=== PATIENT | female | born 1970 | race Caucasian/White ===

== ENCOUNTER 2023-03-18 12:14 | Outpatient (CLI) | payer BC | END 2023-03-18 12:15 | disposition home or self-care (01) | LOC: DTY/OP 12:14 | PROVIDERS: ATTEND Surgery | DX: E66.01 Morbid (severe) obesity due to excess calories (principal) | CPT/HCPCS: 97802 ==

== ENCOUNTER 2023-03-24 07:24 | Inpatient (IN) | payer BC ==
[2023-03-20 15:20] VITALS: BMI 32.6
[2023-03-24] MEDS ORDERED: Scopolamine 1 mg/72 hour Patch ONE (08:30)
[2023-03-24] MEDS ORDERED: cefOXitin 2 GM VIAL ONE ×3 (08:31→17:04)
[2023-03-24] MEDS ORDERED: Sodium Chloride 0.9% 100 ML ONE (08:31)
[2023-03-24] MEDS ORDERED: EPINEPHrine 1 MG/ML VIAL ONE (11:33)
[2023-03-24] MEDS ORDERED: Bupivacaine 0.25% HCL 30 ML VIAL ONE (11:33)
[2023-03-24] MEDS ORDERED: Glucagon 1 MG/ML KIT IM PRN (11:35)
[2023-03-24] MEDS ORDERED: SUGAMMADEX SODIUM 200 MG/2 ML VIAL ONE (11:35)
[2023-03-24] MEDS ORDERED: hydrALAZINE 20 MG/ML VIAL SLOW IVP PRN (11:35)
[2023-03-24] MEDS ORDERED: Dextrose 50% Abboject 50 ML SYRINGE SLOW IVP PRN (11:35)
[2023-03-24] MEDS ORDERED: Dextrose 5% in Water 1,000 ML IV PRN (11:35)
[2023-03-24] MEDS ORDERED: Ipratropium/Albuterol 3 ML NEB NEB PRN (11:35)
[2023-03-24] MEDS ORDERED: Promethazine HCl 25 MG/ML VIAL IM PRN ×2 (11:35→17:09)
[2023-03-24] MEDS ORDERED: fentaNYL PF 100 MCG/2 ML SYRINGE ONE ×2 (11:35→17:55)
[2023-03-24] MEDS ORDERED: diphenhydrAMINE 50 MG/ML VIAL IVP PRN (11:35)
[2023-03-24] MEDS ORDERED: MINERAL OIL/WHITE PETROLATUM 3.5 GM TUBE ONE (11:41)
[2023-03-24] MEDS ORDERED: Rocuronium Bromide 10 MG/ML (10ML VIAL) ONE (12:05)
[2023-03-24] MEDS ORDERED: PHENYLEPHRINE-NS 100 MCG/ML 10 ML SYRINGE ONE (12:05)
[2023-03-24] MEDS ORDERED: Vecuronium 10 MG VIAL ONE (12:05)
[2023-03-24] MEDS ORDERED: PROPOFOL 200 MG/20 ML VIAL ONE (12:05)
[2023-03-24] MEDS ORDERED: Ondansetron PF 4 MG/2 ML Vial ONE (12:05)
[2023-03-24] MEDS ORDERED: Labetalol HCl 100 MG/20 ML VIAL ONE (12:05)
[2023-03-24] MEDS ORDERED: Lidocaine 1% PF 5 ML VIAL ONE (12:05)
[2023-03-24] MEDS ORDERED: Dexamethasone 20 MG/5 ML VIAL ONE (12:05)
[2023-03-24] MEDS ORDERED: Esmolol 100 MG/10 ML VIAL ONE (12:05)
[2023-03-24] MEDS ORDERED: SUMAtriptan Succinate 50 MG TAB PO PRN (13:30)
[2023-03-24] MEDS ORDERED: Phenylephrine 40 MG/NS 250 ML 250 ML ONE (14:58)
[2023-03-24] MEDS ORDERED: Ondansetron HCl/PF 4 MG/2 ML Vial IVP PRN (17:09)
[2023-03-24] MEDS ORDERED: fentaNYL 50 mcg/mL 1 mL Vial ONE ×2 (18:20→19:02)
[2023-03-24] MEDS: Morphine 2 MG/ML VIAL SLOW IVP PRN (20:25)
[2023-03-24] MEDS: Pramipexole Di-HCl 0.125 MG TAB PO SCH (20:26)
[2023-03-24] MEDS: D5 1/2 NS w/20 mEq KCL 1,000 ML IV SCH ×2 (20:26→21:03)
[2023-03-24] MEDS: Amitriptyline HCl 25 MG TAB PO SCH (20:26)
[2023-03-24] MEDS: Ketorolac Tromethamine 30 MG/ML VIAL IVP SCH ×3 (21:02→23:55)
[2023-03-24] MEDS: levETIRAcetam 500 MG TAB PO SCH (21:28)
[2023-03-25] MEDS: Ondansetron PF 4 MG/2 ML Vial IVP PRN ×2 (02:46→17:23)
[2023-03-25] MEDS: Morphine 2 MG/ML VIAL SLOW IVP PRN ×2 (02:46→07:37)
[2023-03-25] MEDS: D5 1/2 NS w/20 mEq KCL 1,000 ML IV SCH ×3 (02:46→21:30)
[2023-03-25] MEDS: Levothyroxine Sodium 50 MCG TAB PO SCH (04:35)
[2023-03-25 05:01] LABS: #Monocytes 0.8 thou/uL (0.11-0.59); #Neutrophils 7.1 thou/uL (1.40-6.50); %Basophils 0.1 % (0.0-1.0); %Lymphocytes 15.4 % (21.0-51.0); %Monocytes 8.2 % (0.0-10.0); Hematocrit 38.6 % (36.0-47.0); Hemoglobin 12.1 g/dL (12.0-16.0); Mean Corpuscular HGB CONC 31.3 g/dL (32.0-36.0); Mean Corpuscular Hemoglobin 28.2 pg (27.0-31.0); Mean Platelet Volume 9.7 fL (7.4-10.4); Platelet Count 261 10x3/uL (130-400); RBC Distribution Width 13.7 % (11.5-14.5); Red Blood Cell (RBC) Count 4.29 mill/uL (4.20-5.40); White Blood Cell (WBC) Count 9.3 10x3/uL (4.8-10.8)
[2023-03-25] MEDS: Ketorolac Tromethamine 30 MG/ML VIAL IVP SCH ×3 (05:18→17:20)
[2023-03-25 05:28] LABS: Anion Gap 13 mmol/L (10-20); BUN (Urea Nitrogen) 7 mg/dL (9.8-20.1); Calc. Creatinine Clearance 106 mL/min (70-130); Calcium 7.9 mg/dL (7.8-10.44); Carbon Dioxide 20 mmol/L (22-29); Chloride 107 mmol/L (98-107); Estimated GFR 95; Glucose 204 mg/dL (70-105); Potassium 4.4 mmol/L (3.5-5.1); Sodium 136 mmol/L (136-145)
[2023-03-25] MEDS ORDERED: Topiramate [Trokendi Xr] 100 MG Cap.Er.24h PO SCH (09:00)
[2023-03-25] MEDS: DULoxetine 60 MG CAP PO SCH (09:32)
[2023-03-25] MEDS: Pantoprazole 40 MG VIAL IVP SCH (09:32)
[2023-03-25] MEDS: levETIRAcetam 500 MG TAB PO SCH ×2 (09:32→21:29)
[2023-03-25] MEDS: Hydrocodone-Acetamin 15 ML UDCUP PO PRN ×2 (09:35→21:28)
[2023-03-25] MEDS: Pramipexole Di-HCl 0.125 MG TAB PO SCH (21:29)
[2023-03-25] MEDS: Amitriptyline HCl 25 MG TAB PO SCH (21:29)
[2023-03-26] MEDS: Ketorolac Tromethamine 30 MG/ML VIAL IVP SCH ×2 (00:04→05:55)
[2023-03-26] MEDS: D5 1/2 NS w/20 mEq KCL 1,000 ML IV SCH (02:42)
[2023-03-26] MEDS: Hydrocodone-Acetamin 15 ML UDCUP PO PRN ×2 (04:02→09:08)
[2023-03-26] MEDS: Levothyroxine Sodium 50 MCG TAB PO SCH (05:54)
[2023-03-26 08:08] VITALS: BP 116/81; TEMP 98
[2023-03-26] MEDS: Pantoprazole 40 MG VIAL IVP SCH (08:59)
[2023-03-26] MEDS: DULoxetine 60 MG CAP PO SCH (08:59)
[2023-03-26] MEDS: levETIRAcetam 500 MG TAB PO SCH (08:59)
== END 2023-03-26 11:12 | disposition home or self-care (01) | DRG 326 ==
LOC: SURG A 07:24 → SURG B 19:44
PROVIDERS: ADMIT Surgery; ATTEND Surgery
PROC: 0BQT4ZZ Repair Diaphragm, Percutaneous Endoscopic Approach (ICD-10-PCS; principal; 2023-03-24)
PROC: 0DB64ZZ Excision of Stomach, Percutaneous Endoscopic Approach (ICD-10-PCS; 2023-03-24)
PROC: 8E0W4CZ Robotic Assisted Procedure of Trunk Region, Percutaneous Endoscopic Approach (ICD-10-PCS; 2023-03-24)
PROC: 0DNU4ZZ Release Omentum, Percutaneous Endoscopic Approach (ICD-10-PCS; 2023-03-24)
PROC: 0DN84ZZ Release Small Intestine, Percutaneous Endoscopic Approach (ICD-10-PCS; 2023-03-24)
DX: K44.9 Diaphragmatic hernia without obstruction or gangrene (principal); K28.5 Chronic or unspecified gastrojejunal ulcer with perforation; E66.01 Morbid (severe) obesity due to excess calories; K21.9 Gastro-esophageal reflux disease without esophagitis; Z79.899 Other long term (current) drug therapy; E03.9 Hypothyroidism, unspecified
CPT/HCPCS: 36415; 74240; 80048; 85025; 88307; C9113; J0171; J0694; J1100; J1650; J1885; J2272; J2405; J2704; J3010; J3480; J3490; S0020